=== PATIENT | female | born 1950 | race Hispanic/Latino ===

== ENCOUNTER → 2017-09-29 | Outpatient (CLI) | payer OTHER ==
[~2017-09-29] MED LIST: CARAL PO; CYCL30DR OU; HYDR-4060 PO; LORA1TAB3 PO; METO-408 PO; PANT40TA PO; PARO10TA71 PO; PRAV80TA21 PO; RIVA20TA PO
== END | disposition home or self-care (01) ==
LOC: OIH 14:14
PROVIDERS: ATTEND Internal Medicine Cardiovascular Disease
DX: Z13.6 Encounter for screening for cardiovascular disorders (principal)
CPT/HCPCS: 75571

== ENCOUNTER 2020-06-14 11:00 | Observation (INO) | payer MEDICARE ==
[~2020-06-14] VITALS: Ht 160 cm; Wt 100.5 kg
[2020-06-14 10:11] LABS: BASOPHILS % (AUTO) 0.6 % (0.0-5.0); EOSINOPHILS % (AUTO) 2.6 % (0.0-8.0); HEMATOCRIT 39.4 % (36-48); LYMPHOCYTES % (AUTO) 39.3 % (21.0-51.0); MEAN CORPUSCULAR HEMOGLOBIN 31.9 pg (27.0-33.0); MEAN CORPUSCULAR VOLUME 102.9 fL (79-99); MONOCYTES % (AUTO) 9.3 % (3.0-13.0); NEUTROPHILS % (AUTO) 47.9 % (40.0-77.0); PLATELET COUNT (AUTO) 159 K/uL (130-400); RED BLOOD CELL COUNT(AUTO) 3.83 MIL/uL (4.00-5.50); WHITE BLOOD COUNT (AUTO) 6.2 K/uL (4.8-10.8)
[2020-06-14 10:19] LABS: CREATININE 1.3 mg/dL (0.5-1.5); POTASSIUM 4.4 mmol/L (3.5-5.1)
[~2020-06-14 11:00] MED LIST changes: -CARAL PO; -CYCL30DR OU; +FLEC50TA3 PO; -HYDR-4060 PO; -LORA1TAB3 PO; +LOSA50TA64 PO; -METO-408 PO; -PANT40TA PO; +PRAV40TA3 PO; -PRAV80TA21 PO; -RIVA20TA PO; +VERA120T13 PO
[2020-06-18 09:39] VITALS: BP 133/67
[2020-06-18] MEDS ORDERED: SITA1TBM7 PO (10:42)
[2020-06-18] MEDS ORDERED: METO-391 PO (10:42)
[2020-06-18] MEDS ORDERED: RIVA20TA PO (10:42)
[2020-06-18] MEDS ORDERED: MV-M1TAB20 PO (10:42)
[2020-06-18] MEDS ORDERED: LORA-192 PO (10:42)
[2020-06-18] MEDS ORDERED: LINA290C PO (10:42)
[2020-06-19] VITALS (22 sets, daily range): BP systolic 118–149; BP diastolic 50–82
[2020-06-19] MEDS ORDERED: SODIUM CHLORIDE 0.9% 1000ML 1,000 ML IV ONE (06:25)
[2020-06-19] MEDS ORDERED: CEFAZOLIN SODIUM 1 GM VIAL ONE ×2 (06:25→06:51)
[2020-06-19] MEDS ORDERED: DURAMORPH PF1 MG/ML 10ML AMP IV ONE (06:51)
[2020-06-19] MEDS ORDERED: THROMBIN-JMI 20000 UNIT KIT TP ONE (06:51)
[2020-06-19] MEDS: BUPIVACAINE/EPI/PF 0.25% 30ML VIAL IJ SCH ×2 (07:00→08:08)
[2020-06-19] MEDS ORDERED: DEXAMETHASONE SOD PHOSPHATE 10MG/ML 1ML VIAL ONE ×2 (07:09→07:13)
[2020-06-19] MEDS ORDERED: NEOSTIGMINE 5MG/5ML SYR IV ONE (07:09)
[2020-06-19] MEDS ORDERED: GLYCOPYRROLATE 1 MG/5 ML SYRINGE ONE (07:09)
[2020-06-19] MEDS ORDERED: LIDOCAINE PF 2% 5ML ABBOJECT ONE (07:09)
[2020-06-19] MEDS ORDERED: SUCCINYLCHOLINE CHLORIDE 20 MG/ML 10 ML VIAL ONE (07:09)
[2020-06-19] MEDS ORDERED: PROPOFOL 10 MG/ML 20ML VIAL IV ONE (07:09)
[2020-06-19] MEDS ORDERED: MIDAZOLAM HCL 1 MG/ML 2ML VIAL ONE (07:09)
[2020-06-19] MEDS ORDERED: ONDANSETRON HCL 4 MG/2 ML VIAL ONE (07:10)
[2020-06-19] MEDS ORDERED: FENTANYL CITRATE PF 50 MCG/1 ML 2ML VIAL ONE ×2 (07:10→09:41)
[2020-06-19] MEDS ORDERED: ROCURONIUM 10MG/1ML SYR 10 MG/ML ML ONE (07:10)
[2020-06-19] MEDS ORDERED: CEFAZOLIN SODIUM 1 GM VIAL IVP ONE (08:00)
[2020-06-19] MEDS ORDERED: LINZESS 290 MCG PO SCH (11:15)
[2020-06-19] MEDS ORDERED: SODIUM CHLORIDE 0.9% 10 ML VIAL IVP PRN (11:15)
[2020-06-19] MEDS ORDERED: PROMETHAZINE HCL 25 MG/ML 1ML AMPULE IM PRN (11:15)
[2020-06-19] MEDS ORDERED: LORAZEPAM 1 MG TABLET PO SCH (11:15)
[2020-06-19] MEDS ORDERED: MORPHINE SULFATE 2 MG/ML 1ML SYG IVP PRN (11:15)
[2020-06-19] MEDS: DEXAMETHASONE SOD PHOSPHATE 4 MG/ML 1ML VIAL IVP SCH ×3 (11:15→22:58)
[2020-06-19] MEDS: LACTATED RINGERS 1000ML 1,000 ML IV SCH (11:15)
[2020-06-19] MEDS: CEFAZOLIN SODIUM 1 GM VIAL IVP SCH ×2 (11:15→17:04)
[2020-06-19] MEDS: INSULIN HUMULIN R 100 UNIT/ML 3ML SQ SCH ×2 (16:30→21:00)
[2020-06-19] MEDS: FLECAINIDE ACETATE 100 MG TABLET PO SCH (21:00)
[2020-06-19] MEDS: **HM** PRAVASTATIN 40MG PO SCH (21:00)
[2020-06-20] MEDS: LACTATED RINGERS 1000ML 1,000 ML IV SCH ×2 (00:35→13:55)
[2020-06-20] MEDS: CEFAZOLIN SODIUM 1 GM VIAL IVP SCH ×2 (03:15→11:15)
[2020-06-20 04:00] VITALS: BP 131/54
[2020-06-20] MEDS: DEXAMETHASONE SOD PHOSPHATE 4 MG/ML 1ML VIAL IVP SCH ×4 (05:34→21:18)
[2020-06-20] MEDS: INSULIN HUMULIN R 100 UNIT/ML 3ML SQ SCH ×4 (05:46→21:00)
[2020-06-20] MEDS: BUPIVACAINE/EPI/PF 0.25% 30ML VIAL IJ SCH (05:46)
[2020-06-20] MEDS: HYDROCODONE/ACETAMINOPHEN 5/325 MG TAB PO PRN ×2 (05:46→20:09)
[2020-06-20 07:48] VITALS: BP 145/61
[2020-06-20] MEDS: JANUMET PO SCH (09:00)
[2020-06-20] MEDS: VERAPAMIL HCL 240 MG SRTAB PO SCH (09:00)
[2020-06-20] MEDS: VIT D3 COMPLETE PO SCH (09:00)
[2020-06-20] MEDS: PAROXETINE HCL 20 MG TABLET PO SCH (09:39)
[2020-06-20] MEDS: METOPROLOL SUCCINATE 50 MG TAB.SR.24H PO SCH (09:39)
[2020-06-20] MEDS: LOSARTAN 50 MG TABLET PO SCH (09:39)
[2020-06-20] MEDS: FLECAINIDE ACETATE 100 MG TABLET PO SCH ×2 (09:52→20:18)
[2020-06-20 11:24] VITALS: BP 136/66
[2020-06-20 20:00] VITALS: BP 126/49
[2020-06-20] MEDS: **HM** PRAVASTATIN 40MG PO SCH (20:18)
[2020-06-21] VITALS: BP 120/58
[2020-06-21] MEDS: LACTATED RINGERS 1000ML 1,000 ML IV SCH (03:15)
[2020-06-21 03:35] VITALS: BP 134/61
[2020-06-21] MEDS: BUPIVACAINE/EPI/PF 0.25% 30ML VIAL IJ SCH (05:26)
[2020-06-21] MEDS: DEXAMETHASONE SOD PHOSPHATE 4 MG/ML 1ML VIAL IVP SCH (05:26)
[2020-06-21] MEDS: INSULIN HUMULIN R 100 UNIT/ML 3ML SQ SCH (05:26)
[2020-06-21 08:32] VITALS: BP 147/57
[2020-06-21] MEDS: VERAPAMIL HCL 240 MG SRTAB PO SCH (08:32)
[2020-06-21] MEDS: METOPROLOL SUCCINATE 50 MG TAB.SR.24H PO SCH (08:33)
[2020-06-21] MEDS: FLECAINIDE ACETATE 100 MG TABLET PO SCH (08:33)
[2020-06-21] MEDS: LOSARTAN 50 MG TABLET PO SCH (08:33)
[2020-06-21] MEDS: VIT D3 COMPLETE PO SCH (08:33)
[2020-06-21] MEDS: PAROXETINE HCL 20 MG TABLET PO SCH (08:33)
[2020-06-21] MEDS: JANUMET PO SCH (08:33)
== END 2020-06-21 10:30 | disposition home or self-care (01) ==
LOC: DAHIP 06-19 05:42 → EDSTATUS 06-19 11:00 → 3AH 06-19 12:39
PROVIDERS: ADMIT Neurological Surgery; ATTEND Neurological Surgery
DX: M48.061 Spinal stenosis, lumbar region without neurogenic claudication (principal); Z20.822 Contact with and (suspected) exposure to COVID-19; M48.02 Spinal stenosis, cervical region; I48.0 Paroxysmal atrial fibrillation; I10 Essential (primary) hypertension; E78.5 Hyperlipidemia, unspecified; I48.91 Unspecified atrial fibrillation; Z98.1 Arthrodesis status; Z95.0 Presence of cardiac pacemaker; Z79.01 Long term (current) use of anticoagulants; Z79.899 Other long term (current) drug therapy; Z88.8 Allergy status to other drugs, medicaments and biological substances
CPT/HCPCS: 36415; 63047; 63048 ×3; 80048; 72020; 82948 ×9; 85025; 93005; 96374; 96375; 96376 ×3; 97039 ×3; 97116 ×3; 97161; A4215; A4221; A4222; A4223; A4344; A4510; A4649 ×3; A4663; G0378 ×45; G8978; G8979; G8980; G8981; G8982; G8983; J0330; J0690 ×4; J1100 ×9; J1815; J2001; J2250; J2274; J2405; J2704; J2710; J3010 ×2; J3490 ×2; J7030 ×2; U0003

== ENCOUNTER → 2021-04-22 | Outpatient (CLI) | payer MEDICARE ==
[~2021-04-22] VITALS: Ht 160 cm; Wt 91.7 kg
[~2021-04-22] MED LIST changes: +ATOR40TA69 PO; +GABA300C PO; +LINA290C PO; +LORA-192 PO; +METO-391 PO; +MV-M1TAB20 PO; +OMEP20CA12 PO; +RIVA20TA PO; +SITA1TBM7 PO; +SITA50TA PO; -VERA120T13 PO; +VERA120T92 PO
[2021-04-22 13:25] VITALS: BP 142/68
== END | disposition home or self-care (01) ==
LOC: RAH 11:26
PROVIDERS: ATTEND Orthopaedic Surgery
DX: M17.12 Unilateral primary osteoarthritis, left knee (principal); M85.88 Other specified disorders of bone density and structure, other site
CPT/HCPCS: 73700

== ENCOUNTER 2021-04-23 08:50 | Observation (INO) | payer MEDICARE ==
[2021-04-19 12:17] LABS: BASOPHILS % (AUTO) 0.5 % (0.0-5.0); EOSINOPHILS % (AUTO) 1.8 % (0.0-8.0); HEMATOCRIT 39.2 % (36-48); LYMPHOCYTES % (AUTO) 29.4 % (21.0-51.0); MEAN CORPUSCULAR HGB CONC 30.9 g/dL (32.0-36.0); MEAN CORPUSCULAR VOLUME 100.5 fL (79-99); MONOCYTES % (AUTO) 6.5 % (3.0-13.0); NEUTROPHILS % (AUTO) 61.6 % (40.0-77.0); PLATELET COUNT (AUTO) 175 K/uL (130-400); RED CELL DISTRIBUTION WIDTH 13.2 % (11.0-15.5); WHITE BLOOD COUNT (AUTO) 6.3 K/uL (4.8-10.8)
[2021-04-19 12:24] LABS: CREATININE 1.3 mg/dL (0.5-1.5); POTASSIUM 3.9 mmol/L (3.5-5.1)
[2021-04-19 12:28] LABS: INR 1.58 (0.85-1.15); PROTHROMBIN TIME 16.5 SEC (9.6-11.6)
[2021-04-19 12:29] LABS: PARTIAL THROMBOPLASTIN TIME 36.4 SEC (26.3-35.5)
[2021-04-22 10:43] VITALS: BP 142/68
[~2021-04-23] VITALS: Ht 160 cm; Wt 91.7 kg
[2021-04-23] VITALS (22 sets, daily range): BP systolic 111–137; BP diastolic 55–77
[~2021-04-23 08:50] MED LIST changes: -LINA290C PO; -PRAV40TA3 PO; +ROPIVICAINE 250MG+KETOROLAC 15MG+EPINEPHRINE 0.3+CLONIDINE 80 IV PRN; -SITA1TBM7 PO
[2021-04-23] MEDS ORDERED: 0.9%NACL 1000ML 1,000 ML IV ONE (09:43)
[2021-04-23] MEDS: CEFAZOLIN SODIUM 1 GM VIAL IVP SCH ×3 (10:15→21:12)
[2021-04-23] MEDS ORDERED: ROCURONIUM 10MG/1ML SYR 10 MG/ML ML ONE (13:46)
[2021-04-23] MEDS ORDERED: SUCCINYLCHOLINE CHLORIDE 20 MG/ML 10 ML VIAL ONE (13:46)
[2021-04-23] MEDS ORDERED: PROPOFOL 10 MG/ML 20ML VIAL IV ONE (13:46)
[2021-04-23] MEDS ORDERED: LIDOCAINE PF 100MG/5ML (2%) SYRINGE 5ML ONE (13:46)
[2021-04-23] MEDS ORDERED: ROPIVACAINE 0.5% 5MG/ML 30ML IJ ONE (13:53)
[2021-04-23] MEDS ORDERED: MIDAZOLAM HCL 1 MG/ML 2ML VIAL ONE (14:12)
[2021-04-23] MEDS ORDERED: EPHEDRINE SULFATE 50 MG/ML AMPULE ONE (14:22)
[2021-04-23] MEDS ORDERED: TRANEXAMIC ACID 1000MG/10ML ONE (14:35)
[2021-04-23] MEDS ORDERED: ONDANSETRON 4MG INJ ONE (16:34)
[2021-04-23] MEDS ORDERED: GLYCOPYRROLATE 1 MG/5 ML SYRINGE ONE (16:34)
[2021-04-23] MEDS ORDERED: NEOSTIGMINE 5MG/5ML SYR IV ONE (16:35)
[2021-04-23] MEDS: ACETAMINOPHEN 500 MG TABLET PO SCH (17:00)
[2021-04-23] MEDS ORDERED: POTASSIUM CHLORIDE 20MEQ/100ML 100 ML IV PRN (17:00)
[2021-04-23] MEDS ORDERED: KCL 20 MEQ ERTAB PO PRN (17:00)
[2021-04-23] MEDS ORDERED: HYDROCODONE/ACETAMINOPHEN 5/325 MG TAB PO PRN (17:00)
[2021-04-23] MEDS ORDERED: OXYCODONE HCL 5 MG TAB PO PRN (17:00)
[2021-04-23] MEDS ORDERED: POTASSIUM CHLORIDE 10% ELIXIR 20 MEQ/15 ML UDCUP PO PRN (17:00)
[2021-04-23] MEDS ORDERED: LIDOCAINE HCL-MPF 1% 2ML VIAL IV PRN (17:00)
[2021-04-23] MEDS: TRAMADOL HCL 50 MG TABLET PO SCH ×2 (18:00→23:47)
[2021-04-23] MEDS: MORPHINE 4 MG SYG IVP PRN (18:43)
[2021-04-23] MEDS: ONDANSETRON 4MG INJ IVP PRN (18:43)
[2021-04-23] MEDS: 0.9%NACL 1000ML 1,000 ML IV SCH (18:44)
[2021-04-23] MEDS: RIVAROXABAN 20 MG TABLET PO SCH (21:00)
[2021-04-23] MEDS: FLECAINIDE ACETATE 100 MG TABLET PO SCH (21:00)
[2021-04-23] MEDS: INSULIN HUMULIN R 100 UNIT/ML 3ML SQ SCH (21:00)
[2021-04-23] MEDS: LORAZEPAM 1 MG TABLET PO SCH (21:08)
[2021-04-23] MEDS: GABAPENTIN 300 MG CAPSULE PO SCH (21:09)
[2021-04-24 00:09] VITALS: BP 101/50
[2021-04-24] MEDS: ACETAMINOPHEN 500 MG TABLET PO SCH ×3 (01:00→19:51)
[2021-04-24] MEDS: 0.9%NACL 1000ML 1,000 ML IV SCH ×2 (03:00→13:00)
[2021-04-24 04:11] VITALS: BP 142/68
[2021-04-24 04:25] LABS: HEMATOCRIT 32.2 % (36-48); MEAN CORPUSCULAR HEMOGLOBIN 31.2 pg (27.0-33.0); MEAN CORPUSCULAR HGB CONC 30.4 g/dL (32.0-36.0); MEAN CORPUSCULAR VOLUME 102.5 fL (79-99); RED BLOOD CELL COUNT(AUTO) 3.14 MIL/uL (4.00-5.50); RED CELL DISTRIBUTION WIDTH 13.2 % (11.0-15.5)
[2021-04-24] MEDS: ONDANSETRON 4MG INJ IVP PRN (04:28)
[2021-04-24] MEDS: MORPHINE 4 MG SYG IVP PRN (04:29)
[2021-04-24 04:36] LABS: POTASSIUM 4.3 mmol/L (3.5-5.1)
[2021-04-24] MEDS: INSULIN HUMULIN R 100 UNIT/ML 3ML SQ SCH ×4 (05:17→20:40)
[2021-04-24] MEDS: CEFAZOLIN SODIUM 1 GM VIAL IVP SCH (05:17)
[2021-04-24] MEDS: TRAMADOL HCL 50 MG TABLET PO SCH ×4 (06:00→23:14)
[2021-04-24 08:00] VITALS: BP 108/61
[2021-04-24] MEDS: LINAGLIPTIN 5 MG TABLET PO SCH (10:35)
[2021-04-24] MEDS: POLYETHYLENE GLYCOL 3350 17 GM POWD.PACK PO SCH (10:35)
[2021-04-24] MEDS: FLECAINIDE ACETATE 100 MG TABLET PO SCH ×2 (10:35→19:55)
[2021-04-24] MEDS: PAROXETINE HCL 20 MG TABLET PO SCH (10:35)
[2021-04-24] MEDS: FAMOTIDINE 20MG TAB PO SCH (10:35)
[2021-04-24] MEDS: LOSARTAN 50 MG TABLET PO SCH (10:35)
[2021-04-24] MEDS: METOPROLOL SUCCINATE 50 MG TAB.SR.24H PO SCH (10:37)
[2021-04-24 12:04] VITALS: BP 149/72
[2021-04-24] MEDS: VERAPAMIL HCL 240 MG SRTAB PO SCH (14:25)
[2021-04-24 16:00] VITALS: BP 129/67
[2021-04-24 19:14] VITALS: BP 112/71
[2021-04-24] MEDS: RIVAROXABAN 20 MG TABLET PO SCH (19:51)
[2021-04-24] MEDS: LORAZEPAM 1 MG TABLET PO SCH (19:51)
[2021-04-24] MEDS: GABAPENTIN 300 MG CAPSULE PO SCH (19:52)
[2021-04-25] VITALS: BP 140/76
[2021-04-25 04:28] VITALS: BP 160/83
[2021-04-25] MEDS: TRAMADOL HCL 50 MG TABLET PO SCH ×2 (05:08→12:00)
[2021-04-25] MEDS: ACETAMINOPHEN 500 MG TABLET PO SCH ×2 (05:09→14:00)
[2021-04-25] MEDS: INSULIN HUMULIN R 100 UNIT/ML 3ML SQ SCH ×2 (05:58→11:30)
[2021-04-25 08:00] VITALS: BP 142/81
[2021-04-25] MEDS: LINAGLIPTIN 5 MG TABLET PO SCH (10:30)
[2021-04-25] MEDS: VERAPAMIL HCL 240 MG SRTAB PO SCH (10:30)
[2021-04-25] MEDS: FAMOTIDINE 20MG TAB PO SCH (10:30)
[2021-04-25] MEDS: PAROXETINE HCL 20 MG TABLET PO SCH (10:30)
[2021-04-25] MEDS: FLECAINIDE ACETATE 100 MG TABLET PO SCH (10:31)
[2021-04-25] MEDS: POLYETHYLENE GLYCOL 3350 17 GM POWD.PACK PO SCH (10:31)
[2021-04-25] MEDS: LOSARTAN 50 MG TABLET PO SCH (10:31)
[2021-04-25] MEDS: METOPROLOL SUCCINATE 50 MG TAB.SR.24H PO SCH (10:35)
[2021-04-26] MEDS ORDERED: BISACODYL 10 MG SUPP.RECT RC PRN (17:00)
== END 2021-04-25 18:32 | disposition home or self-care (01) ==
LOC: DAH 08:50 → DAHIP 08:51 → 4DH 18:38
PROVIDERS: ADMIT Orthopaedic Surgery; ATTEND Orthopaedic Surgery
DX: M17.12 Unilateral primary osteoarthritis, left knee (principal); Z20.822 Contact with and (suspected) exposure to COVID-19; M54.16 Radiculopathy, lumbar region; E66.9 Obesity, unspecified; I10 Essential (primary) hypertension; E78.00 Pure hypercholesterolemia, unspecified; E11.9 Type 2 diabetes mellitus without complications; Z85.9 Personal history of malignant neoplasm, unspecified; Z79.899 Other long term (current) drug therapy; Z98.890 Other specified postprocedural states; Z68.35 Body mass index [BMI] 35.0-35.9, adult
CPT/HCPCS: 27447; 36415 ×2; 80048 ×2; 82948 ×9; 85025; 85027; 85610; 85730; 87635; 87641; 96374; 96375; 96376; 97039 ×4; 97116 ×2; 97161; 97530 ×2; A4215; A4221; A4222; A4223; A4248; A4600; A4649 ×4; A4663; A4930; A6223; A6260; C1776; C9803; G0378 ×47; J0171; J0330; J0690 ×2; J0735; J1885; J2001; J2250; J2270 ×2; J2405 ×3; J2704; J2710; J2795 ×2; J3490 ×3; J7030 ×2

== ENCOUNTER 2021-06-17 07:30 | Day surgery (SDC) | payer MEDICARE ==
[2021-06-13 11:43] LABS: BASOPHILS % (AUTO) 0.6 % (0.0-5.0); EOSINOPHILS % (AUTO) 4.8 % (0.0-8.0); HEMATOCRIT 36.8 % (36-48); LYMPHOCYTES % (AUTO) 32.3 % (21.0-51.0); MEAN CORPUSCULAR HEMOGLOBIN 29.2 pg (27.0-33.0); MEAN CORPUSCULAR HGB CONC 30.2 g/dL (32.0-36.0); MEAN CORPUSCULAR VOLUME 96.8 fL (79-99); PLATELET COUNT (AUTO) 172 K/uL (130-400); RED CELL DISTRIBUTION WIDTH 14.4 % (11.0-15.5); WHITE BLOOD COUNT (AUTO) 6.7 K/uL (4.8-10.8)
[2021-06-13 11:49] LABS: CREATININE 1.1 mg/dL (0.5-1.5); POTASSIUM 4.2 mmol/L (3.5-5.1)
[2021-06-13 12:13] LABS: INR 1.54 (0.85-1.15); PROTHROMBIN TIME 16.1 SEC (9.6-11.6)
[2021-06-13 12:14] LABS: PARTIAL THROMBOPLASTIN TIME 35.8 SEC (26.3-35.5)
[2021-06-14 09:07] VITALS: BP 123/70
[2021-06-17] VITALS (11 sets, daily range): BP systolic 94–121; BP diastolic 47–68
[~2021-06-17] VITALS: Ht 160 cm; Wt 89.8 kg
[~2021-06-17 07:30] MED LIST changes: +ATOR20TA65 PO; -ATOR40TA69 PO; -GABA300C PO; -ROPIVICAINE 250MG+KETOROLAC 15MG+EPINEPHRINE 0.3+CLONIDINE 80 IV PRN
[2021-06-17] MEDS ORDERED: 0.9%NACL 1000ML 1,000 ML IV ONE (08:35)
[2021-06-17] MEDS ORDERED: BUPIVACAINE/PF 0.25% 30ML VIAL IJ ONE (10:40)
[2021-06-17] MEDS ORDERED: LIDOCAINE HCL 1% MDV 50ML VIAL ONE (10:41)
[2021-06-17] MEDS ORDERED: MIDAZOLAM HCL 1 MG/ML 2ML VIAL ONE (10:41)
[2021-06-17] MEDS ORDERED: CEFAZOLIN SODIUM 1 GM VIAL ONE (10:42)
[2021-06-17] MEDS ORDERED: MEPERIDINE-PF 50 MG/ML SYG ONE (11:02)
[2021-06-17] MEDS ORDERED: FENTANYL CITRATE PF 50 MCG/1 ML 2ML VIAL ONE (11:03)
[2021-06-17] MEDS ORDERED: DEXTROSE 50%-WATER 50 ML DISP.SYRIN IV PRN (12:00)
[2021-06-17] MEDS ORDERED: ACETAMINOPHEN 325 MG TAB PO PRN ×2 (12:00)
[2021-06-17] MEDS ORDERED: INSULIN HUMULIN R 100 UNIT/ML 3ML SQ SCH (16:30)
[2021-06-17] MEDS ORDERED: CEFAZOLIN SODIUM 1 GM VIAL IVP PRN (18:00)
== END 2021-06-17 17:32 | disposition home or self-care (01) ==
LOC: DAH 07:30
PROVIDERS: ATTEND Internal Medicine Cardiovascular Disease
DX: Z45.010 Encounter for checking and testing of cardiac pacemaker pulse generator [battery] (principal); I49.5 Sick sinus syndrome; I10 Essential (primary) hypertension; I48.91 Unspecified atrial fibrillation; Z79.01 Long term (current) use of anticoagulants; Z79.899 Other long term (current) drug therapy; Z98.890 Other specified postprocedural states
CPT/HCPCS: 33228; 36415; 80048; 82948; 85025; 85610; 85730; A4215; A4216; A4221; A4222; A4223 ×3; A4606; A4663; C1785; J0690 ×2; J2250; J3010; J3490 ×2; J7030 ×2; 93005; 99156; 99157; J2175

== ENCOUNTER → 2023-08-11 | Outpatient (CLI) | payer MEDICARE ==
[~2023-08-11] VITALS: Ht 160 cm; Wt 105.3 kg
[~2023-08-11] MED LIST changes: +CHOL100034 PO; +CYAN-106 PO; +CYAN1TAB44 PO; +DRON400T7 PO; +METO-408 PO; +PANT40TA55 PO; +PREG100C56 PO; +SUCR1TAB2 PO; +VERA180T60 PO
[2023-08-11 08:49] LABS: BASOPHILS # (AUTO) 0.04 K/uL (0.00-0.20); BASOPHILS % (AUTO) 0.7 % (0.0-5.0); EOSINOPHILS # (AUTO) 0.19 K/uL (0.00-0.70); EOSINOPHILS % (AUTO) 3.2 % (0.0-8.0); HEMATOCRIT 36.6 % (36-48); IMMATURE GRANULOCYTE ABSOLUTE 0.04 K/uL (0-1); LYMPHOCYTES % (AUTO) 33.7 % (21.0-51.0); MEAN CORPUSCULAR HEMOGLOBIN 28.2 pg (27.0-33.0); MEAN CORPUSCULAR HGB CONC 29.8 g/dL (32.0-36.0); MEAN CORPUSCULAR VOLUME 94.8 fL (79-99); MONOCYTES # (AUTO) 0.5 K/uL (0.1-1.0); MONOCYTES % (AUTO) 8.9 % (3.0-13.0); NEUTROPHILS # (AUTO) 3.2 K/uL (1.8-7.7); NEUTROPHILS % (AUTO) 52.8 % (40.0-77.0); PLATELET COUNT (AUTO) 235 K/uL (130-400); RED BLOOD CELL COUNT(AUTO) 3.86 MIL/uL (4.00-5.50); RED CELL DISTRIBUTION WIDTH 15.7 % (11.0-15.5)
[2023-08-11 09:07] LABS: CREATININE 1.1 mg/dL (0.5-1.0); POTASSIUM 4.6 mmol/L (3.5-5.1)
[2023-08-11 09:25] LABS: INR 1.34 (0.85-1.15); PROTHROMBIN TIME 15.5 SEC (9.6-11.6)
[2023-08-11 09:27] VITALS: BP 138/64; PULSE 81; RESP 19
[2023-08-11 09:27] LABS: PARTIAL THROMBOPLASTIN TIME 38.8 SEC (26.3-35.5)
== END | disposition home or self-care (01) ==
LOC: DAH 10:00 → EDSTATUS 08-18 07:30
PROVIDERS: ATTEND Internal Medicine Cardiovascular Disease
DX: Z01.818 Encounter for other preprocedural examination (principal); I48.0 Paroxysmal atrial fibrillation; I48.92 Unspecified atrial flutter; I47.19 Other supraventricular tachycardia
CPT/HCPCS: 36415; 80048; 85025; 85610; 85730; 93005; 93623; 93655; 93656; 93657; A4344; C1893; C1894; A4215; A4649; C1731; C1732; C1766

== ENCOUNTER 2023-09-17 05:34 | Observation (INO) | payer MEDICARE ==
[2023-09-15 08:58] LABS: BASOPHILS # (AUTO) 0.03 K/uL (0.00-0.20); BASOPHILS % (AUTO) 0.5 % (0.0-5.0); EOSINOPHILS # (AUTO) 0.16 K/uL (0.00-0.70); EOSINOPHILS % (AUTO) 2.6 % (0.0-8.0); HEMATOCRIT 37.3 % (36-48); IMMATURE GRANULOCYTE ABSOLUTE 0.03 K/uL (0-1); LYMPHOCYTES % (AUTO) 32.3 % (21.0-51.0); MEAN CORPUSCULAR HEMOGLOBIN 28.6 pg (27.0-33.0); MEAN CORPUSCULAR HGB CONC 31.1 g/dL (32.0-36.0); MEAN CORPUSCULAR VOLUME 91.9 fL (79-99); MONOCYTES # (AUTO) 0.6 K/uL (0.1-1.0); MONOCYTES % (AUTO) 10.3 % (3.0-13.0); NEUTROPHILS # (AUTO) 3.3 K/uL (1.8-7.7); NEUTROPHILS % (AUTO) 53.8 % (40.0-77.0); PLATELET COUNT (AUTO) 220 K/uL (130-400); RED BLOOD CELL COUNT(AUTO) 4.06 MIL/uL (4.00-5.50); RED CELL DISTRIBUTION WIDTH 15.6 % (11.0-15.5); WHITE BLOOD COUNT (AUTO) 6.1 K/uL (4.8-10.8)
[2023-09-15 09:10] VITALS: BP 136/75; PULSE 83; RESP 19
[2023-09-15 09:11] LABS: INR 1.42 (0.85-1.15); PROTHROMBIN TIME 16.3 SEC (9.6-11.6)
[2023-09-15 09:13] LABS: PARTIAL THROMBOPLASTIN TIME 42.2 SEC (26.3-35.5)
[2023-09-15 09:42] LABS: CREATININE 1.3 mg/dL (0.5-1.0); POTASSIUM 4.6 mmol/L (3.5-5.1)
[~2023-09-17] VITALS: Ht 160 cm; Wt 105.8 kg
[2023-09-17] VITALS (36 sets, daily range): BP systolic 118–149; BP diastolic 60–82; PULSE 64–82; RESP 12–23; O2SAT 96–97
[~2023-09-17 05:34] MED LIST changes: -CYAN1TAB44 PO; -FLEC50TA3 PO; -LOSA50TA64 PO; -METO-391 PO; -MV-M1TAB20 PO; -OMEP20CA12 PO; -PANT40TA55 PO; -SUCR1TAB2 PO; -VERA120T92 PO
[2023-09-17] MEDS: ACETAMINOPHEN 1,000 MG/100 ML VIAL IV ONE (06:39)
[2023-09-17] MEDS: FAMOTIDINE 20MG VIAL IV ONE (06:39)
[2023-09-17] MEDS ORDERED: PROPOFOL 10 MG/ML 20ML VIAL IV ONE (06:42)
[2023-09-17] MEDS ORDERED: ROCURONIUM BROMIDE 10MG/1ML 5ML VL ONE ×2 (06:42→08:35)
[2023-09-17] MEDS ORDERED: LIDOCAINE PF 100MG/5ML (2%) SYRINGE 5ML ONE (06:42)
[2023-09-17] MEDS ORDERED: FENTANYL CITRATE PF 50 MCG/1 ML 2ML VIAL ONE (06:43)
[2023-09-17] MEDS: SUGAMMADEX SODIUM 200 MG/2 ML VIAL IV ONE (07:10)
[2023-09-17] MEDS ORDERED: PHENYLEPHRINE HCL 10 MG/ML 1ML VIAL IV ONE (07:12)
[2023-09-17] MEDS: 0.9%NACL 1000ML 1,000 ML IV ONE (07:14)
[2023-09-17] MEDS ORDERED: LIDOCAINE HCL 400MG/20ML VIAL ONE (07:51)
[2023-09-17] MEDS ORDERED: HEPARIN 10,000 UNIT/10ML (1,000 UNIT/ML) VIAL ONE ×2 (07:51→08:26)
[2023-09-17] MEDS ORDERED: ONDANSETRON 4MG INJ ONE (08:13)
[2023-09-17] MEDS ORDERED: DEXAMETHASONE SOD PHOSPHATE 10MG/ML 1ML VIAL ONE (08:13)
[2023-09-17] MEDS ORDERED: ISOPROTERENOL HCL 0.2 MG/ML AMP/VIAL/BAG ONE (10:27)
[2023-09-17] MEDS ORDERED: PROTAMINE SULFATE 10 MG/ML 5 ML VIAL ONE (11:34)
[2023-09-17] MEDS: PANTOPRAZOLE 40 MG TAB DR PO ONE (13:00)
[2023-09-17] MEDS: SUCRALFATE 1 GM TABLET PO SCH (13:00)
[2023-09-17] MEDS: METOPROLOL SUCCINATE 25 MG TAB.SR.24H PO SCH (20:06)
[2023-09-17] MEDS: ATORVASTATIN 20 MG TABLET PO SCH (20:06)
[2023-09-17] MEDS: DRONEDARONE HYDROCHLORIDE 400 MG TABLET PO SCH (20:06)
[2023-09-17] MEDS: LORAZEPAM 1 MG TABLET PO SCH (20:06)
[2023-09-17] MEDS: RIVAROXABAN 20 MG TABLET PO SCH (20:06)
[2023-09-17] MEDS: PREGABALIN 100 MG CAPSULE PO SCH (20:07)
[2023-09-17] MEDS: CYANOCOBALAMIN (VITAMIN B-12) 1,000 MCG TABLET PO SCH (20:07)
[2023-09-18] VITALS (18 sets, daily range): BP systolic 112–147; BP diastolic 57–91; PULSE 62–77; RESP 16–24; O2SAT 93–96
[2023-09-18] MEDS: (Cholecalciferol (Vitamin D3) (Vitamin D3) 25 MCG) PO SCH (08:24)
[2023-09-18] MEDS: PAROXETINE HCL 20 MG TABLET PO SCH (08:25)
[2023-09-18] MEDS: (Sitagliptin Phosphate (Januvia) 50 MG) PO SCH (08:25)
[2023-09-18] MEDS: PANTOPRAZOLE 40 MG TAB DR PO SCH (08:25)
[2023-09-18] MEDS ORDERED: SUCR1TAB2 PO (12:23)
[2023-09-18] MEDS ORDERED: PANT40TA55 PO (12:23)
== END 2023-09-18 13:06 | disposition home or self-care (01) ==
LOC: DAH 05:34 → DAHIP 05:35 → 2CH 14:42
PROVIDERS: ADMIT Internal Medicine Cardiovascular Disease; ATTEND Internal Medicine Cardiovascular Disease
DX: I48.0 Paroxysmal atrial fibrillation (principal); I48.92 Unspecified atrial flutter; I47.19 Other supraventricular tachycardia; E11.9 Type 2 diabetes mellitus without complications; I10 Essential (primary) hypertension; R29.6 Repeated falls; E78.5 Hyperlipidemia, unspecified; F41.9 Anxiety disorder, unspecified; Z85.3 Personal history of malignant neoplasm of breast; Z79.899 Other long term (current) drug therapy
CPT/HCPCS: 80048; 85025; 85610; 85730; 36415; 93005; 93623; 93655 ×2; 93656; 93657 ×2; 85347 ×7; 82948 ×2; A4344; C1894 ×3; C1732 ×2; C1893; A4215 ×2; C1731; A4649 ×2; C1766; G0378 ×24; J3490 ×5; J3010; J1100; J7030; J2001; J2720; J1644 ×3; J2704; J2405; J2371; A4223 ×3; A4222; A4221; A4663; A4216; A4606